=== PATIENT | male | born 1960 | race African-American/Black ===

== ENCOUNTER 2016-07-11 15:33 | Emergency (ER) | payer OTHER ==
[~2016-07-11] VITALS: Ht 172.7 cm; Wt 102.6 kg
[~2016-07-11 15:33] MED LIST: ATORVASTATIN CA20 MG PO; CALTRATE 6001 TABLE1 PO; CYCLOBENZAPR TAB 10M PO; FLOMAX0.4 MG PO; INDOCIN25 MG PO; LIDODERM 5% P1 PATCH TD; LISINOPRIL10 MG PO; LISINOPRIL2.5 MG PO; MAGNESIUM400 MG PO; MIRALAX255 GM PO; MUSCLE RELAXER; NABUMETONE PO; OXYCODONE-APAP1 EACH PO; PERCOCET 10/1 TABLET PO; PREDNISONE20 MG PO; VALIUM5 MG PO; VALTREX1000 MG PO
[2016-07-11 16:19] LABS: MCHC 33.9 G/DL (30.0-36.0); MCV 85.4 FL (86-99); MEAN PLAT.VOLUME 10.3 uM^3 (9.0-12.4); PLATELET COUNT 187 K/uL (156-360); RBC DIS.WIDTH-SD 43.7 % (39-53); WHITE BLOOD COUNT 6.1 K/uL (4.1-10.2)
[2016-07-11 16:29] LABS: CHLORIDE 105 mEq/L (99-109); POTASSIUM 4.7 mEq/L (3.7-5.4); SODIUM 140 mEq/L (136-147)
[2016-07-11 16:31] LABS: GLUCOSE 127 mg/dL (70-99)
[2016-07-11 16:32] LABS: ANION GAP 10 MEQ/L (2-14)
[2016-07-11 16:35] LABS: GFR ESTIMATE (CALCULATED) > 59 mL/min/; UREA NITROGEN (BUN) 9 mg/dL (9-23)
[2016-07-11 16:48] LABS: TROP-I INTERPRETATION NEGATIVE; TROPONIN-I < 0.01 ng/mL (0.0-0.30)
[2016-07-11 17:15] LABS: CREATINE KINASE 132 IU/L (1-294)
[2016-07-11 19:16] LABS: ADD MIUA? NO; BILIRUBIN NEGATIVE; BLOOD NEGATIVE; COLOR YELLOW ((YELLOW)); GLUCOSE (STRIP) NEGATIVE; KETONES NEGATIVE; LEUKOCYTES NEGATIVE; NITRITE NEGATIVE; PROTEIN (STRIP) NEGATIVE; SPECIFIC GRAVITY 1.014 (1.000-1.030); UROBILINOGEN 0.2 MG/DL (0.2-1.0)
[2016-07-11] MEDS ORDERED: VENTOLIN HFA18 GM IH (19:35)
[2016-07-11] MEDS ORDERED: PREDNISONE20 MG PO (19:35)
[2016-07-11] MEDS ORDERED: MOTRIN800 MG PO (19:35)
[2016-07-11 19:58] VITALS: BP 115/81
== END 2016-07-11 20:00 | disposition home or self-care (01) ==
LOC: EME 15:33
PROVIDERS: Physician Assistant
DX: J11.1 Influenza due to unidentified influenza virus with other respiratory manifestations (principal); I95.1 Orthostatic hypotension; J20.8 Acute bronchitis due to other specified organisms; F17.200 Nicotine dependence, unspecified, uncomplicated; E11.9 Type 2 diabetes mellitus without complications; G89.29 Other chronic pain
CPT/HCPCS: 71020; 80048; 81003; 82550; 84484; 85027; 93005; 94640; 99281; 99285; J1885; J2930; J7030

== ENCOUNTER → 2016-08-22 | Outpatient (CLI) | payer OTHER ==
[~2016-08-22] MED LIST changes: +MOTRIN800 MG PO; +VENTOLIN HFA18 GM IH
== END | disposition home or self-care (01) ==
LOC: RAD 09:56
DX: M47.896 Other spondylosis, lumbar region (principal); M48.06 Spinal stenosis, lumbar region; M12.88 Other specific arthropathies, not elsewhere classified, other specified site
CPT/HCPCS: 72100

== ENCOUNTER 2017-02-15 11:14 | Day surgery (SDC) | payer OTHER ==
[~2017-02-15] VITALS: Ht 175.3 cm; Wt 95.9 kg
[~2017-02-15 11:14] MED LIST changes: +CATAPRES0.1 MG PO; +DURAGESIC25 MCG TD; +GLUCOPHAGE XR750 MG PO; +NEURONTIN300 MG PO; +NORVASC5 MG PO; +PRILOSEC20 MG PO; +VOLTAREN75 MG PO; +ZESTRIL20 MG PO; +ZESTRIL30 MG PO
[2017-02-15 12:23] VITALS: BP 123/80
[2017-02-15 12:30] LABS: HEMATOCRIT 36.4 % (38.0-50.0); MCHC 35.4 G/DL (30.0-36.0); MCV 84.7 FL (86-99); MEAN PLAT.VOLUME 10.2 uM^3 (9.0-12.4); PLATELET COUNT 173 K/uL (156-360); RBC DIS.WIDTH-CV 13.4 % (11.8-14.6); RBC DIS.WIDTH-SD 41.6 % (39-53); WHITE BLOOD COUNT 4.9 K/uL (4.1-10.2)
[2017-02-15 13:20] LABS: ANION GAP 5 MEQ/L (2-14); CHLORIDE 108 MEQ/L (99-109); GFR ESTIMATE (CALCULATED) > 59 mL/min/; GLUCOSE 100 mg/dL (70-99); POTASSIUM 4.1 MEQ/L (3.7-5.4); SAMPLE HEMOLYSIS CHECK 0; SAMPLE ICTERIC CHECK 0; SAMPLE LIPEMIA CHECK 0; SODIUM 141 MEQ/L (136-147); UREA NITROGEN (BUN) 9 mg/dL (9-23)
[2017-02-15 17:33] LABS: POINT-OF-CARE METER ID UU13113675
[2017-02-15 19:45] VITALS: BP 165/79
[2017-02-15 22:49] VITALS: BP 160/80
[2017-02-16 03:13] VITALS: BP 149/80
[2017-02-16 07:36] VITALS: BP 130/74
[2017-02-16] MEDS ORDERED: OXYCODONE-APAP1 EACH PO (08:34)
[2017-02-16] MEDS ORDERED: HYDROMORPHONE HC4 MG PO (08:34)
[2017-02-16] MEDS ORDERED: CYCLOBENZAPRINE10 MG PO (08:34)
[2017-02-16 11:07] VITALS: BP 105/68
[2017-02-16 15:07] VITALS: BP 123/76
[2017-02-16] MEDS ORDERED: GABAPENTIN300 MG PO (16:30)
[2017-02-16] MEDS ORDERED: OXYCODONE HCL5 MG PO (16:30)
[2017-02-16 19:14] VITALS: BP 120/78
[2017-02-16 23:15] VITALS: BP 124/69
[2017-02-17 03:05] VITALS: BP 99/60
[2017-02-17 04:54] VITALS: BP 109/71
[2017-02-17 07:30] VITALS: BP 133/81
[2017-02-17 11:20] VITALS: BP 114/69
== END 2017-02-17 13:08 | disposition home or self-care (01) ==
LOC: SDC 11:14 → ENRESERV 18:10 → 2SOUTH 19:15 → 2EAST 19:15 → 2SOUTH 19:15 → 2EAST 19:36
PROVIDERS: Neurological Surgery
DX: M47.26 Other spondylosis with radiculopathy, lumbar region (principal); M48.061 Spinal stenosis, lumbar region without neurogenic claudication; M51.16 Intervertebral disc disorders with radiculopathy, lumbar region; G89.29 Other chronic pain; I10 Essential (primary) hypertension; E11.9 Type 2 diabetes mellitus without complications; M54.12 Radiculopathy, cervical region; E66.9 Obesity, unspecified; Z68.31 Body mass index [BMI] 31.0-31.9, adult; R94.31 Abnormal electrocardiogram [ECG] [EKG]; F17.210 Nicotine dependence, cigarettes, uncomplicated; Z79.84 Long term (current) use of oral hypoglycemic drugs
CPT/HCPCS: 72020; 76000; 80048; 82948; 85027; 93005; G0378; J0131; J0330; J0690; J1170; J2250; J2405; J2710; J3010; J3480; S0020